=== PATIENT | female | born 1985 | race Caucasian/White ===

== ENCOUNTER → 2019-05-16 | Outpatient (CLI) | payer OTHER ==
--- NOTE | 2019-05-17 13:34 | WOMENS IMAGING REPORT ---
EXAM DESCRIPTION: U/S BREAST UNILAT LIMITED COMPLETED DATE/TIME: 05/16/2019 2:13 pm REASON FOR STUDY: N63.0 UNSPECIFIED LUMP IN UNSPECIFIED BREAST N63.0 UNSPECIFIED LUMP IN UNSPECIFIE D BREAST COMPARISON: None. TECHNIQUE: Real-time and static grayscale imaging performed of the left axilla and breast targeted t o the area of clinical concern. Patient is 6 weeks , and has left axilla and lateral breast pain. Selected color Doppler images recorded. LIMITATIONS: None. FINDINGS: MASS: No mass identified. Normal glandular tissue. OTHER: No other significant finding. IMPRESSION: No suspicious findings detected by ultrasound. BIRAD: Negative. RECOMMENDATION: RECOMMENDED FOLLOW-UP: Follow-up as clinically indicated. COMMENT: The [employer] ([employer]) has developed recommendations for screening MRI of the breasts in certain patient populations, to be used in conjunction with mammography. Breast MRI s urveillance may be appropriate for women with more than 20% lifetime risk of developing breast cancer as determined by genetic testing, significant family history of the disease, or history of mantle r adiation for Hodgkins Disease. ACR Practice Guidelines 2008. TECHNICAL DOCUMENTATION: JOB ID: [id number] [employer]- All Rights Reserved Reading location - IP/workstation name: [email or web address]
== END ==
LOC: WI 13:40
PROVIDERS: ATTEND Internal Medicine
DX: N63.0 Unspecified lump in unspecified breast (principal)
CPT/HCPCS: 76642

== ENCOUNTER 2019-12-30 04:55 | Inpatient (IN) | payer OTHER ==
[2019-12-23 10:58] LABS: APPEARANCE,URINE CLEAR; BILIRUBIN,URINE NEGATIVE (NEGATIVE); COLOR,URINE YELLOW; GLUCOSE, URINE NEGATIVE (NEGATIVE); KETONES,URINE NEGATIVE (NEGATIVE); LEUKOCYTE ESTERASE,URINE NEGATIVE (NEGATIVE); NITRITE,URINE NEGATIVE (NEGATIVE); PROTEIN,URINE NEGATIVE (NEGATIVE); URINE SPECIFIC GRAVITY 1.012; UROBILINOGEN,URINE NEGATIVE mg/dL (<2.0)
[2019-12-23 11:24] LABS: URINE AMPHETAMINES SCREEN NEGATIVE; URINE BARBITURATES SCREEN NEGATIVE; URINE BENZODIAZEPINES SCREEN NEGATIVE; URINE COCAINE SCREEN NEGATIVE; URINE MARIJUANA (THC) SCREEN NEGATIVE; URINE METHADONE SCREEN NEGATIVE; URINE PHENCYCLIDINE SCREEN NEGATIVE
[2019-12-28 10:50] LABS: HEMATOCRIT 37.2 % (36.0-47.0); HEMOGLOBIN 13.3 g/dL (12.0-15.5); MEAN CORPUSCULAR HGB CONC 35.7 g/dL (32.0-36.0); MEAN CORPUSCULAR VOLUME 90 fl (80-97); PLATELET COUNT 129 10^3/uL (150-450); RED BLOOD COUNT 4.15 10^6/uL (3.72-5.28); RED CELL DISTRIBUTION WIDTH 14.9 % (11.5-14.0); WHITE BLOOD COUNT 11.2 10^3/uL (4.0-10.5)
[2019-12-28 11:19] LABS: ABSOLUTE LYMPHOCYTES# (MANUAL) 2.4 10^3/uL (0.5-4.7); ABSOLUTE MONOCYTES # (MANUAL) 0.4 10^3/uL (0.1-1.4); BAND NEUTROPHILS % (MANUAL) 1 % (3-5); BASOPHILS % (MANUAL) 0 % (0-2); EOSINOPHILS % (MANUAL) 0 % (0-6); LYMPHOCYTES % (MANUAL) 21 % (13-45); MONOCYTES % (MANUAL) 4 % (3-13); SEGMENTED NEUTROPHILS % (MAN) 74 % (42-78); TOTAL CELLS COUNTED 100
[2019-12-28 11:20] LABS: ANISOCYTOSIS SLIGHT; PLATELET COMMENT DECREASED
[~2019-12-30 04:55] MED LIST: RINGERS SOLUTION,LACTATED 1,000 ML IV PRN
[2019-12-30] MEDS ORDERED: CEFAZOLIN SODIUM 2 GM in DEXTROSE 5%-WATER 100 ML IV PRN (05:00)
[2019-12-30] MEDS ORDERED: RINGERS SOLUTION,LACTATED 1,000 ML IV PRN ×2 (05:00→09:35)
[2019-12-30] MEDS ORDERED: ONDANSETRON HCL INJ/PF 4 MG/2 ML SDV ONE (07:28)
[2019-12-30] MEDS ORDERED: CITRIC ACID/SODIUM CITRATE ORAL SOLN 15 ML UDCUP ONE (07:28)
[2019-12-30] MEDS ORDERED: MIDAZOLAM 2 MG/2 ML INJ ONE (07:28)
[2019-12-30] MEDS ORDERED: OXYTOCIN 10 UNIT/ML VIAL ONE (07:28)
[2019-12-30] MEDS ORDERED: PHENYLEPHRINE HCL INJ/PF 10 MG/1 ML SDV ONE (07:28)
[2019-12-30] MEDS ORDERED: PROPOFOL INJ 200 MG/20 ML VIAL IV ONE (09:14)
[2019-12-30] MEDS ORDERED: FENTANYL CITRATE INJ/PF 100 MCG/2 ML AMPUL IV PRN ×3 (09:33)
[2019-12-30] MEDS ORDERED: MORPHINE SULFATE 10 MG/ML INJ IV PRN (09:33)
[2019-12-30] MEDS ORDERED: DIPHENHYDRAMINE HCL 50 MG/ML VIAL IV PRN (09:33)
[2019-12-30] MEDS ORDERED: MEASLES,MUMPS&RUBELLA VACC/PF 0.5 ML VIAL SUBCUT PRN ×2 (09:35→12:30)
[2019-12-30] MEDS ORDERED: ACETAMINOPHEN 325 MG TABLET PO PRN (09:35)
[2019-12-30] MEDS ORDERED: DIPH/PERTUSS(ACELL)/TETANUS VAC/PF 0.5 ML SYR (>=10YO) IM PRN ×2 (09:35→12:30)
[2019-12-30] MEDS ORDERED: OXYTOCIN/0.9 % SODIUM CHLORIDE 30 UNIT/500 ML RTUINJ IV PRN (09:35)
[2019-12-30] MEDS ORDERED: OXYCODONE-ACETAMINOPHEN 5-325 MG TABLET PO PRN (09:35)
[2019-12-30] MEDS ORDERED: PROMETHAZINE HCL INJ 25 MG/1 ML VIAL IV PRN ×2 (09:35→13:00)
[2019-12-30] MEDS ORDERED: KETOROLAC TROMETHAMINE INJ/PF 30 MG/1 ML SDV ONE (09:39)
[2019-12-30] MEDS ORDERED: HYDROMORPHONE HCL INJ/PF 2 MG/ML AMPULE ONE ×2 (09:40→10:28)
[2019-12-30] MEDS ORDERED: ACETAMINOPHEN 1,000 MG/100 ML RTUPB IV ONE (09:40)
[2019-12-30] MEDS ORDERED: KETOROLAC TROMETHAMINE INJ/PF 30 MG/1 ML SDV IV SCH (09:45)
[2019-12-30] MEDS ORDERED: ACETAMINOPHEN 1,000 MG/100 ML RTUPB IV SCH ×2 (10:00→14:00)
--- NOTE | 2019-12-30 10:04 | Operative Report ---
Operative Report DATE OF SURGERY: 12/30/19 PREOPERATIVE DIAGNOSIS: Prior section x2, Intrauterine at 39+ weeks EGA, undesired fertility POSTOPERATIVE DIAGNOSIS: As above with addition of extensive scar tissue between anterior abdominal wall, uterus and bladder. OPERATION: Repeat section and bilateral tubal ligation SURGEON: SAVANA SHEARER ANESTHESIA: Spinal TISSUE REMOVED OR ALTERED: Placenta COMPLICATIONS: None ESTIMATED BLOOD LOSS: 650 cc INTRAOPERATIVE FINDINGS: Extensive scar tissue between rectus fascia, anterior uterus and bladder. Viable female with loose nuchal cord x1, anterior/fundal placenta, placenta normal appearing, normal appearing bilateral fallopian tubes and ovaries PROCEDURE: V fluids: per anesthesia record Urinary output: 250 cc clear yellow urine Position: To recovery room in stable condition Description of procedure: The patient was taken to the operating room and spinal anesthesia was administered and found to be adequate. She was then placed on the OR table in the supine position with a slight leftward tilt. Patient was prepped and draped in usual sterile fashion. Ancef 2 gms was given IV prior to the procedure for infection prophylaxis. Timeout was taken. A Pfannenstiel skin incision was then made approximately 3 cm above the pubic symphysis-at level of previous scar and carried down to level the rectus fascia. The rectus fascia was then nicked in the midline with a scalpel and the fascial incision was extended laterally with use of curved Terry scissors. The rectus fascia was then grasped with 2 Kocker clamps elevated and the underlying rectus muscle was dissected off both bluntly and sharply. Scar tissue noted as above. Any bleeding controlled with cautery. The rectus muscles were then split in the midline and the peritoneum was entered. Extensive scar tissue was noted as above. The peritoneal incision was then extended by manually stretching the peritoneum. The Julio C retractor was placed. The bladder was noted to be out of harm's way. A scalpel was then used in the lower uterine for the hysterotomy, slowly until amniotomy was obtained a large amount of fluid was noted. The uterine incision was then manually stretched. The was noted to be in vertex postion but engaged in the pelv is. The head was delivered with minmal difficulty. Nuchal , loose x1 was noted and reduced. The shoulders and the rest of the body followed immediately. The cord was cut clamped and the infant was handed off to the nurse awaiting. was crying prior to hand off. The placenta was manually delivered. Using a lap gauze the uterus was cleared of all clots and debris. The uterus was then exteriorized and a bladder blade was repositioned. The uterine incision was then closed with 0 Chromic suture in a running locked fashion. A second layer of the same suture was used in a running locked imbricated fashion. The uterine incision was inspected and a box stitch x2 was used to control bleeding in midline and at the right incision edge. Due to scar tissue taken down at the beginning of the procedure between anterior abdominal wall and the anterior uterus, some oozing was seen in this area. Surgicel sheet placed here at oozing was light and no stitich needed. Hemostatis then noted. Retractor was removed. The posterior aspect of the uterus was then inspected and anatomy was seen as above. The right fallopian tube was identified and traced to the fimbriated end. A filshie clip was placed approximately 2 cm from the uterine cornu. Clip surrounded the tube in its entirety. Blanching noted and hemostasis. The left fallopian tube was identified and traced to the fimbriated end. A filshie clip was placed approximately 2 cm from the uterine cornu. Clip surrounded the tube in its entirety. Blanching noted and hemostasis. The uterus was returned to its normal anatomic position within the abdominal cavity. Warm saline irrigation was used to clear all clots and debris from the abdomen. The uterine incision was inspected once more and noted to remain hemostatic. The Julio C retractor was removed and the peritoneum was closed with 2-0 chromic in a running fashion. The rectus muscles were then reapproximated and the rectus fascia was closed with a #1 PDS in a running fashion. The sub cutaneous tissue was then inspected and any bleeding was controlled with Bovie electrocautery. The subcutaneous tissue was then closed with 2-0 Plain Gut suture in a running fashion. The skin was then closed with 3-0 Monocryl in a running subcuticular fashion. The skin incision was then clean dried and Dermabond was applied over the skin incision. All instrument sponge and needle counts were correct x3 for the procedure the patient tolerated the procedure well. She will proceed to recovery room in stable condition
--- NOTE | 2019-12-30 10:07 | PDOC DELIVERY SUMMARY ---
Delivery Summary - Maternal Hx : III Hx # Term Pregnancies: 2 Hx # Pregnancies: 0 Hx Total # of Abortions (Sponateous & Elective): 0 BRIDGET: 01/04/20 Gestational Age: 39.5 Fluids: Clear - Delivery Presentation: Vertex Heart Rate Monitoring: Done Pre-Operatively Support Person Present: Yes : Scheduled Placenta: Within Normal Limits Nuchal Cord: Yes - loose, reduced Estimated Blood Loss: 650cc - Medications Type of Anesthesia:: Spinal - Delivery Personnel MD: SAVANA SHEARER
[2019-12-30] MEDS ORDERED: HYDROMORPHONE HCL INJ/PF 2 MG/ML AMPULE IV ONE (10:26)
[2019-12-30] MEDS: OXYCODONE-ACETAMINOPHEN 5-325 MG TABLET PO PRN ×2 (12:15→20:22)
[2019-12-30] MEDS: DOCUSATE SODIUM 100 MG CAPSULE PO SCH ×2 (12:54→17:12)
[2019-12-30] MEDS: PRENATAL VITAMIN W DHA CAPSULE PO SCH (12:58)
[2019-12-30] MEDS: HYDROMORPHONE HCL INJ/PF 2 MG/ML AMPULE IV PRN ×3 (13:30→21:38)
[2019-12-30] MEDS: KETOROLAC TROMETHAMINE INJ/PF 30 MG/1 ML SDV IV SCH (17:12)
[2019-12-30] MEDS: SIMETHICONE 80 MG TAB.CHEW PO PRN (21:38)
[2019-12-31] MEDS: OXYCODONE-ACETAMINOPHEN 5-325 MG TABLET PO PRN ×6 (00:47→21:07)
[2019-12-31] MEDS: KETOROLAC TROMETHAMINE INJ/PF 30 MG/1 ML SDV IV SCH (01:28)
[2019-12-31 07:09] LABS: HEMATOCRIT 28.6 % (36.0-47.0); MEAN CORPUSCULAR HEMOGLOBIN 31.7 pg (27.0-33.4); MEAN CORPUSCULAR HGB CONC 35.8 g/dL (32.0-36.0); MEAN CORPUSCULAR VOLUME 89 fl (80-97); RED BLOOD COUNT 3.23 10^6/uL (3.72-5.28); RED CELL DISTRIBUTION WIDTH 14.7 % (11.5-14.0)
[2019-12-31 07:46] LABS: HEMOGLOBIN 10.2 g/dL (12.0-15.5)
[2019-12-31 07:49] LABS: PLATELET COUNT 98 10^3/uL (150-450)
[2019-12-31] MEDS: IBUPROFEN 800 MG TABLET PO SCH ×2 (09:04→17:04)
[2019-12-31] MEDS: DOCUSATE SODIUM 100 MG CAPSULE PO SCH ×2 (09:04→17:04)
[2019-12-31] MEDS: PRENATAL VITAMIN W DHA CAPSULE PO SCH (09:04)
[2019-12-31] MEDS: SIMETHICONE 80 MG TAB.CHEW PO PRN (09:06)
--- NOTE | 2019-12-31 10:27 | PDOC PROGRESS REPORT ---
Subjective-OB Progress Note for:: 12/31/19 Subjective: 34yo G3 now P3 s/p repeat with tubal ligation ppd1. Pt ambulating and voiding without difficulty. Reports pain well controlled with medication, no concerns today Physical Exam (OB) Vital Signs: Temp Pulse Resp BP Pulse Ox 98.1 F 76 16 106/54 L 98 12/31/19 07:29 12/31/19 07:29 12/31/19 07:29 12/31/19 07:29 12/31/19 07:29 Intake & Output 12/30/19 12/31/19 01/01/20 06:59 06:59 06:59 Intake Total 1000 4150 500 Output Total 3700 Balance 1000 450 500 Weight 61.235 kg - General General Appearance: Appears well In distress: None - PIH/Pre-Eclampsia Clonus: Negative Headache: Absent Epigastric Pain: No Visual Changes: No - Dressing Removed: Yes Incision: Well Approximated Closure Type: Surgical Glue - Lochia Lochia Amount: Scant < 10 ml Lochia Color: Rubra/Red - Abdomen Description: Soft Hernia Present: No Fundal Description: Firm, Midline Fundal Height: u/u - u/2 - Respiratory Respiratory Status: No respiratory distress - Extremities Upper extremity: Normal inspection Lower extremities: Normal inspection - Neurological Cognition: Normal Orientation: AAOx4 - Psychological Associated symptoms: Normal affect, Normal mood Objective-Diagnostic Laboratory: 12/31/19 06:45 12/31/19 06:45 WBC 13.0 H RBC 3.23 L Hgb 10.2 L D Hct 28.6 L MCV 89 MCH 31.7 MCHC 35.8 RDW 14.7 H Plt Count 98 L Assessment and Plan(PN) - Assessment and Plan (1) Sterilization Is this a current diagnosis for this admission?: Yes Plan: routine pp care (2) Acute blood loss anemia Is this a current diagnosis for this admission?: Yes Plan: increase dietary iron and FeSO4 BID (3) Thrombocytopenia Is this a current diagnosis for this admission?: Yes Plan: repeat CBC in the am, continue to monitor, might need hematology consult if unresolved pp-normal count earlier in (4) Smoking (tobacco) complicating , third trimester Is this a current diagnosis for this admission?: Yes Plan: cessation encouraged (5) delivery delivered Is this a current diagnosis for this admission?: Yes Plan: routine pp care - Time Spent with Patient Time with patient: Less than 15 minutes Smoking Education Provided: Over 3 minutes Medications reviewed and adjusted accordingly: Yes - Disposition Anticipated Discharge: Home Within: within 24 hours
[2019-12-31] MEDS ORDERED: FLUCONAZOLE 100 MG TABLET ONE (17:12)
[2019-12-31] MEDS ORDERED: FLUCONAZOLE 100 MG TABLET PO ONE (17:30)
[2020-01-01] MEDS: IBUPROFEN 800 MG TABLET PO SCH ×2 (01:13→09:17)
[2020-01-01] MEDS: OXYCODONE-ACETAMINOPHEN 5-325 MG TABLET PO PRN ×4 (01:14→13:13)
[2020-01-01] MEDS: SIMETHICONE 80 MG TAB.CHEW PO PRN (01:18)
[2020-01-01 07:04] LABS: HEMATOCRIT 27.1 % (36.0-47.0); HEMOGLOBIN 9.7 g/dL (12.0-15.5); MEAN CORPUSCULAR HEMOGLOBIN 32.2 pg (27.0-33.4); MEAN CORPUSCULAR HGB CONC 35.9 g/dL (32.0-36.0); MEAN CORPUSCULAR VOLUME 90 fl (80-97); PLATELET COUNT 110 10^3/uL (150-450); RED BLOOD COUNT 3.02 10^6/uL (3.72-5.28); RED CELL DISTRIBUTION WIDTH 14.4 % (11.5-14.0); WHITE BLOOD COUNT 11.8 10^3/uL (4.0-10.5)
[2020-01-01] MEDS: PRENATAL VITAMIN W DHA CAPSULE PO SCH (09:17)
[2020-01-01] MEDS: DOCUSATE SODIUM 100 MG CAPSULE PO SCH (09:17)
--- NOTE | 2020-01-01 09:35 | PDOC DISCHARGE SUMMARY ---
Impression - Admit/DC Date/PCP Admission Date/Primary Care Provider: 12/30/19 04:55 CAROLE MCMANUS MD Discharge Date: 01/01/20 - Discharge Diagnosis (1) Acute blood loss anemia Is this a current diagnosis for this admission?: Yes (2) Smoking (tobacco) complicating , third trimester Is this a current diagnosis for this admission?: Yes (3) Sterilization Is this a current diagnosis for this admission?: Yes (4) Thrombocytopenia Is this a current diagnosis for this admission?: Yes (5) delivery delivered Is this a current diagnosis for this admission?: Yes (6) Oral candidiasis Is this a current diagnosis for this admission?: Yes - Additional Information Resuscitation Status: Full Code Discharge Diet: Regular Discharge Activity: Balance Activity w/Rest, No Lifting Over 10 Pounds, No Lifting/Push/Pulling, Pelvic Rest Referrals: CAROLE MCMANUS MD [Primary Care Provider] - Prescriptions: Oxycodone HCl/Acetaminophen [Percocet 5-325 mg Tablet] 1 tab PO Q4HP PRN #30 tablet PRN Reason: For Pain Scale 3-5 Ibuprofen [Motrin 800 mg Tablet] 800 mg PO Q8HP PRN #60 tablet PRN Reason: Docusate Sodium [Colace 100 mg Capsule] 100 mg PO BID #30 capsule Nystatin [Mycostatin 911816 Unit/1 ml Susp 60 ml Btl] 100,000 unit PO QID 10 Da ys #200 ml Home Medications: No.137/Iron/Folic Acd [ Vitamin Tablet] 1 tab PO DAILY #0 tablet 06/24/14 Ferrous Sulfate [Iron] 325 mg PO DAILY 05/22/16 Docusate Sodium [Colace 100 mg Capsule] 100 mg PO BID #30 capsule 01/01/20 Ibuprofen [Motrin 800 mg Tablet] 800 mg PO Q8HP PRN #60 tablet 01/01/20 Nystatin [Mycostatin 934970 Unit/1 ml Susp 60 ml Btl] 100,000 unit PO QID 10 Days #200 ml 01/01/20 Oxycodone HCl/Acetaminophen [Percocet 5-325 mg Tablet] 1 tab PO Q4HP PRN #30 tablet 01/01/20 HPI Reason(s) for Admission: Ceasarean Section-Repeat Procedures: None Intrapartum Procedure(s): : Low Cervical, Transverse Results Laboratory Results: WBC 11.8 10^3/uL (4.0-10.5) H 01/01/20 06:51 RBC 3.02 10^6/uL (3.72-5.28) L 01/01/20 06:51 Hgb 9.7 g/dL (12.0-15.5) L 01/01/20 06:51 Hct 27.1 % (36.0-47.0) L 01/01/20 06:51 MCV 90 fl (80-97) 01/01/20 06:51 MCH 32.2 pg (27.0-33.4) 01/01/20 06:51 MCHC 35.9 g/dL (32.0-36.0) 01/01/20 06:51 RDW 14.4 % (11.5-14.0) H 01/01/20 06:51 Plt Count 110 10^3/uL (150-450) L 01/01/20 06:51 Lymph % (Auto) Not Reportable 12/28/19 10:07 Bonner % (Auto) Not Reportable 12/28/19 10:07 Eos % (Auto) Not Reportable 12/28/19 10:07 Baso % (Auto) Not Reportable 12/28/19 10:07 Absolute Neuts (auto) Not Reportable 12/28/19 10:07 Absolute Lymphs (auto) Not Reportable 12/28/19 10:07 Absolute Monos (auto) Not Reportable 12/28/19 10:07 Absolute Eos (auto) Not Reportable 12/28/19 10:07 Absolute Basos (auto) Not Reportable 12/28/19 10:07 Total Counted 100 12/28/19 10:07 Seg Neutrophils % Not Reportable 12/28/19 10:07 Seg Neuts % (Manual) 74 % (42-78) 12/28/19 10:07 Band Neutrophils % 1 % (3-5) L 12/28/19 10:07 Lymphocytes % (Manual) 21 % (13-45) 12/28/19 10:07 Monocytes % (Manual) 4 % (3-13) 12/28/19 10:07 Eosinophils % (Manual) 0 % (0-6) 12/28/19 10:07 Basophils % (Manual) 0 % (0-2) 12/28/19 10:07 Abs Neuts (Manual) 8.4 10^3/uL (1.7-8.2) H 12/28/19 10:07 Abs Lymphs (Manual) 2.4 10^3/uL (0.5-4.7) 12/28/19 10:07 Abs Monocytes (Manual) 0.4 10^3/uL (0.1-1.4) 12/28/19 10:07 Absolute Eos (Manual) 0.0 10^3/uL (0.0-0.6) 12/28/19 10:07 Abs Basophils (Manual) 0.0 10^3/uL (0.0-0.2) 12/28/19 10:07 Platelet Comment DECREASED 12/28/19 10:07 Anisocytosis SLIGHT 12/28/19 10:07 Urine Color YELLOW 12/23/19 09:56 Urine Appearance CLEAR 12/23/19 09:56 Urine pH 6.0 (5.0-9.0) 12/23/19 09:56 Ur Specific [place] 1.012 12/23/19 09:56 Urine Protein NEGATIVE mg/dL (NEGATIVE) 12/23/19 09:56 Urine Glucose (UA) NEGATIVE mg/dL (NEGATIVE) 12/23/19 09:56 Urine Ketones NEGATIVE mg/dL (NEGATIVE) 12/23/19 09:56 Urine Blood NEGATIVE (NEGATIVE) 12/23/19 09:56 Urine Nitrite NEGATIVE (NEGATIVE) 12/23/19 09:56 Urine Bilirubin NEGATIVE (NEGATIVE) 12/23/19 09:56 Urine Urobilinogen NEGATIVE mg/dL (<2.0) 12/23/19 09:56 Ur Leukocyte Esterase NEGATIVE (NEGATIVE) 12/23/19 09:56 Urine WBC (Auto) 1 /HPF 12/23/19 09:56 Urine RBC (Auto) 0 /HPF 12/23/19 09:56 Urine Bacteria (Auto) 1+ /HPF 12/23/19 09:56 Squamous Epi Cells Auto 5 /HPF 12/23/19 09:56 Urine Mucus (Auto) RARE /LPF 12/23/19 09:56 Urine Ascorbic Acid NEGATIVE (NEGATIVE) 12/23/19 09:56 Urine Opiates Screen NEGATIVE 12/23/19 09:56 Urine Methadone Screen NEGATIVE 05/11/20 09:56 Ur Barbiturates Screen NEGATIVE 12/23/19 09:56 Ur Phencyclidine Scrn NEGATIVE 12/23/19 09:56 Ur Amphetamines Screen NEGATIVE 12/23/19 09:56 U Benzodiazepines Scrn NEGATIVE 12/23/19 09:56 Urine Cocaine Screen NEGATIVE 12/23/19 09:56 U Marijuana (THC) Screen NEGATIVE 12/23/19 09:56 COVID-19 Source NASOPHARYNGEAL 12/23/19 10:10 COVID-19 (ALLY) NOT DETECTED 12/23/19 10:10 HSV II Specific Ab < 0.91 index (0.00-0.90) 12/31/19 06:45 Blood Type O POSITIVE 12/28/19 10:07 Antibody Screen NEGATIVE 12/28/19 10:07 Plan Plan of Treatment: f/u at [facility] as scheduled Time Spent: Less than 30 Minutes
[2020-01-01 11:27] VITALS: BP 130/68
== END 2020-01-01 13:39 | disposition home or self-care (01) | DRG 784 ==
LOC: 2S 04:55
PROVIDERS: ADMIT Obstetrics & Gynecology; ATTEND Obstetrics & Gynecology
PROC: 10D00Z1 Extraction of Products of Conception, Low, Open Approach (ICD-10-PCS; principal; 2019-12-30)
PROC: 0UL70CZ Occlusion of Bilateral Fallopian Tubes with Extraluminal Device, Open Approach (ICD-10-PCS; 2019-12-30)
DX: O34.211 Maternal care for low transverse scar from previous cesarean delivery (principal); O99.12 Other diseases of the blood and blood-forming organs and certain disorders involving the immune mechanism complicating childbirth; D62 Acute posthemorrhagic anemia; O98.83 Other maternal infectious and parasitic diseases complicating the puerperium; B37.0 Candidal stomatitis; O90.81 Anemia of the puerperium; O69.81X0 Labor and delivery complicated by cord around neck, without compression, not applicable or unspecified; O99.334 Smoking (tobacco) complicating childbirth; D69.6 Thrombocytopenia, unspecified; F17.210 Nicotine dependence, cigarettes, uncomplicated; N85.8 Other specified noninflammatory disorders of uterus; Z3A.39 39 weeks gestation of pregnancy; Z37.0 Single live birth; Z03.818 Encounter for observation for suspected exposure to other biological agents ruled out; Z30.2 Encounter for sterilization
CPT/HCPCS: 1961; 36415; 59025; 80307; 81001; 85025; 85027; 86695; 86696; 86850; 86900; 86901; 87635; 94760; 94799; J0131; J0690; J1170; J1885; J2250; J2370; J2405; J2590; J2704; J3490; J7060; J7120